=== PATIENT | female | born 2000 | race Caucasian/White ===

== ENCOUNTER 2020-08-27 20:53 | Emergency (ER) | payer OTHER ==
[~2020-08-27 20:53] MED LIST: MACROBID 100 M100 M1 PO; ZOFRAN ODT 4 MG4 MG SL
[2020-08-27 22:49] LABS: HEMOGLOBIN 11.2 gm/dl (12.3-15.3); RED BLOOD COUNT 4.38 M/UL (4.00-5.10); WHITE BLOOD COUNT 9.9 K/UL (4.5-11.0)
[2020-08-27 23:13] LABS: BUN/CREATININE RATIO 15 (0-10)
[2020-08-28] MEDS ORDERED: ZOFRAN ODT 4 MG4 MG PO (00:15)
[2020-08-28] MEDS ORDERED: IBU800 MG PO (00:15)
== END 2020-08-28 00:50 | disposition home or self-care (01) ==
LOC: ER1 20:53
PROVIDERS: Nurse Practitioner
DX: N92.0 Excessive and frequent menstruation with regular cycle (principal); F17.210 Nicotine dependence, cigarettes, uncomplicated; Z90.49 Acquired absence of other specified parts of digestive tract; Z88.0 Allergy status to penicillin; Z88.1 Allergy status to other antibiotic agents; Z79.899 Other long term (current) drug therapy
CPT/HCPCS: 80053; 81001; 84146; 84439; 84443; 84703; 85025; 99284

== ENCOUNTER 2021-05-21 09:15 | Emergency (ER) | payer OTHER ==
[~2021-05-21 09:15] MED LIST changes: +IBU800 MG PO; +ZOFRAN ODT 4 MG4 MG PO
[2021-05-21 10:06] LABS: HEMOGLOBIN 12.4 gm/dl (12.3-15.3); RED BLOOD COUNT 4.5 M/UL (4.00-5.10); WHITE BLOOD COUNT 7.3 K/UL (4.5-11.0)
[2021-05-21] MEDS ORDERED: MACROBID 100 M100 MG PO (11:41)
[2021-05-21] MEDS ORDERED: ZOFRAN4 MG PO (11:41)
== END 2021-05-21 12:04 | disposition home or self-care (01) ==
LOC: ER1 09:15
PROVIDERS: Physician Assistant
DX: N39.0 Urinary tract infection, site not specified (principal); R42 Dizziness and giddiness; R11.10 Vomiting, unspecified; R53.1 Weakness; Z88.0 Allergy status to penicillin; Z88.1 Allergy status to other antibiotic agents; Z90.49 Acquired absence of other specified parts of digestive tract; Z20.822 Contact with and (suspected) exposure to COVID-19
CPT/HCPCS: 80053; 81001; 84703; 85025; 96374; 99284; J2405; U0002